=== PATIENT | male | born 1990 | race Caucasian/White ===

== ENCOUNTER 2019-05-24 15:46 | Inpatient (IN) | payer SELFPAY ==
[~2019-05-24] VITALS: Ht 170.2 cm; Wt 127.0 kg
[2019-05-24 16:24] LABS: BASOPHILS # (AUTO) 0.1 (0.0-0.1); BASOPHILS % 0.9 % (0.0-1.0); EOSINOPHILS # (AUTO) 0.2 (0.0-0.4); EOSINOPHILS % 2.2 % (0.0-6.0); HEMATOCRIT 37.2 % (38.2-49.6); HEMOGLOBIN 11.1 g/dL (14.0-18.0); LYMPHOCYTES # (AUTO) 1.3 (1.0-3.2); LYMPHOCYTES % 14.3 % (18.0-39.1); MEAN CORPUSCULAR HEMOGLOBIN 21.8 pg (28-32); MEAN CORPUSCULAR HGB CONC 29.8 g/dL (31-35); MEAN CORPUSCULAR VOLUME 73.1 fL (81-99); MONOCYTES # (AUTO) 0.5 (0.2-0.8); MONOCYTES % 5.4 % (4.4-11.3); NEUTROPHILS % 76.9 % (38.7-80.0); PLATELET COUNT 364 x10e3/uL (140-360); RED BLOOD COUNT 5.09 x10e6/uL (4.3-5.7); RED CELL DISTRIBUTION WIDTH 17.3 % (11.7-14.4)
[2019-05-24 16:34] LABS: INR 1.05; PARTIAL THROMBOPLASTIN TIME 29.3 seconds (23.8-35.5); PROTHROMBIN TIME 14.2 seconds (11.9-14.5)
[2019-05-24 16:44] LABS: ALANINE AMINOTRANSFERASE 22 IU/L (0-55); ALBUMIN 3.3 g/dL (3.5-5.0); ALBUMIN/GLOBULIN RATIO 1.4 (0.8-2.0); ALKALINE PHOSPHATASE 87 IU/L (40-150); ANION GAP 12.7 mmol/L (8-16); BLOOD UREA NITROGEN 14 mg/dL (7-26); BUN/CREATININE RATIO 17 (6-25); CALCIUM 8.9 mg/dL (8.4-10.2); CARBON DIOXIDE 21 mmol/L (22-29); CHLORIDE 103 mmol/L (98-107); CREATININE, SERUM 0.83 mg/dL (0.72-1.25); EST GLOMERULAR FILTRATION RATE > 60 ML/MIN (60-); GLUCOSE 124 mg/dL (74-118); POTASSIUM 3.7 mmol/L (3.5-5.1); SODIUM 133 mmol/L (136-145)
[2019-05-24] MEDS ORDERED: SODIUM CHLORIDE 0.9% 1000ML 2,000 ML ONE (16:48)
--- NOTE | 2019-05-24 16:58 | Diagnostic Imaging Report ---
Exam: Chest one view Clinical history: Shortness of breath Findings: There is severe cardiomegaly. There is no evidence of pulmonary consolidation, edema, pleural effusion, or pneumothorax. The regional osseous structures are unremarkable. Impression: 1. Cardiomegaly. Signed by: Dr. Alejandro Melgar MD on 05/24/2019 4:54 PM
[2019-05-24] MEDS ORDERED: SODIUM CHLORIDE 0.9% 1000ML 1,000 ML IV ONE (17:00)
[2019-05-24 17:01] LABS: BILIRUBIN,URINE NEGATIVE (NEGATIVE); CLARITY,URINE SL CLOUDY (CLEAR); COLOR,URINE YELLOW (YELLOW); KETONES,URINE NEGATIVE (NEGATIVE); LEUKOCYTE ESTERASE ,URINE NEGATIVE (NEGATIVE); NITRITE,URINE NEGATIVE (NEGATIVE); URINE UROBILINOGEN 1 mg/dL (0.2 - 1)
[2019-05-24 17:07] LABS: PROTEIN,URINE DIPSTICK 3+ (NEGATIVE)
[2019-05-24 17:13] LABS: WBC,URINE (MAN) 0-5 /HPF (0-5)
[2019-05-24 17:14] LABS: BACTERIA,URINE RARE /HPF; EPITHELIAL CELLS,URINE FEW /LPF
[2019-05-24] MEDS ORDERED: ENOXAPARIN INJ 80 MG/0.8 ML SYR SC STA (17:26)
[2019-05-24] MEDS: VANCOMYCIN 1GM/NS 250 ML 250 ML IV SCH (17:40)
[2019-05-24] MEDS ORDERED: SODIUM CHLORIDE 0.9% 50ML 50 ML ONE (18:52)
[2019-05-24] MEDS ORDERED: IOPAMIDOL 370 MG/ML 200 ML INFUS..BTL INJ ONE (18:52)
--- NOTE | 2019-05-24 19:05 | Diagnostic Imaging Report ---
EXAM: CT Chest WITH contrast (PE Protocol) INDICATION: ^sob ,PE ^[id number] ^[id number] COMPARISON: Same day chest x-ray TECHNIQUE: Chest was scanned utilizing a multidetector helical scanner from the lung apex through the level of the diaphragm after administration of IV contrast. Thin section reconstructions were obtained with special concentration on the pulmonary arteries. Coronal and sagittal reformations were obtained. Dose modulation, iterative reconstruction, and/or weight based adjustment of the mA/kV was utilized to reduce the radiation dose to as low as reasonably achievable. Pulmonary embolism protocol was performed. IV CONTRAST: 100 mL of Isovue-370 COMPLICATIONS: None RADIATION DOSE: Total DLP: 655.03 mGy*cm Estimated effective dose: (DLP x 0.014 x size factor) mSv CTDIvol has been reviewed. It is below the limits set by the Radiation Protocol Committee (RPC). FINDINGS: LINES/ TUBES: None. LUNGS AND AIRWAYS: No filling defect is identified within the pulmonary arteries to the segmental level. Pulmonary vascular congestion and mild interstitial edema. There is also mild dependent atelectasis. 4 mm right upper lobe nodule (series 3, image 60). 5 mm left lower lobe nodule versus subsegmental atelectasis (3/83). Airways are normal. PLEURA: The pleural spaces are clear. HEART AND MEDIASTINUM: The thyroid gland is normal. No mediastinal, hilar or axillary lymphadenopathy. Nonspecific prominent bilateral hilar lymph nodes, measuring up to 1 cm. The heart is enlarged. There is no pericardial effusion. . Main pulmonary artery measures 3.4 cm, suggestive of pulmonary hypertension. The ascending aorta measures 3.1 cm. UPPER ABDOMEN: Unremarkable BONES: The visualized bony thorax is within normal limits. SOFT TISSUES: Unremarkable. IMPRESSION: No pulmonary emboli. Cardiomegaly, pulmonary vascular congestion, and mild interstitial edema. Lung nodules as above. Without risk factors, no follow-up is necessary. With risk factors, follow-up with low-dose chest CT in one year is recommended. Signed by: Dr. Manjeet Almendarez MD on 05/24/2019 7:02 PM
[2019-05-24] MEDS ORDERED: MORPHINE SULFATE 2 MG/ML SYR 1ML IV STA (19:14)
[2019-05-24] MEDS ORDERED: ONDANSETRON HCL INJ 2MG/ML 2ML 2 MG/ML VIAL IV STA (19:14)
[2019-05-24] MEDS ORDERED: ONDANSETRON HCL INJ 2MG/ML 2ML 2 MG/ML VIAL IV PRN (19:15)
[2019-05-24] MEDS ORDERED: MORPHINE SULFATE INJ 4 MG/ML INJ 1ML IV PRN (19:15)
--- OUTSIDE RECORDS SUMMARY | 2019-05-24 19:43 | XMS REPORT ---
Author Author [facility] Address Unknown Phone Unavailable Care Team Providers Care Clin Tech Name Role Phone Jaron WOOTEN Unavailable Unavailable Problems This patient has no known problems. Allergies, Adverse Reactions, Alerts This patient has no known allergies or adverse reactions. Medications This patient has no known medications. Results Test Description Test Time Test Comments Text Results Atomic Results Result Comments CT CHEST W 2019-05-24 18:43:00 [facility] [address] [address] Patient Name: CAROLINE YU MR #: [id number] : 1990 Age/Sex: 28/M Req #: [id number] Adm Physician: Ordered by: SANTY WOOTEN MD Report #: [id number] Location: ER Room/Bed: Procedure: [id number] CT/CT CHEST W Exam Date: 05/24/19 Exam Time: 1814 REPORT STATUS: Signed EXAM: CT Chest WITH contrast (PE Protocol) INDICATION: sob ,PE [id number] COMPARISON: Same day chest x-ray TECHNIQUE: Chest was scanned utilizing a multidetector helical scanner from the lung apex through the level of the diaphragm after administration of IV contrast. Thin section reconstructions were obtained with special concentration on the pulmonary arteries. Coronal and sagittal reformations were obtained. Dose modulation, iterative reconstruction, and/or weight based adjustment of the mA/kV was utilized to reduce the radiation dose to as low as reasonably achievable. Pulmonary embolism protocol was performed. IV CONTRAST: 100 mL of Isovue-370 COMPLICATIONS: None RADIATION DOSE: Total DLP: 655.03 mGy*cm Estimated effective dose: (DLP x 0.014 x size factor) mSv CTDIvol has been reviewed. It is below the limits set by the Radiation Protocol Committee (RPC). FINDINGS: LINES/ TUBES: None. LUNGS AND AIRWAYS: No filling defect is identified within the pulmonary arteries to the segmental level. Pulmonary vascular congestion and mild interstitial edema. There is also mild dependent atelectasis. 4 mm right upper lobe nodule (series 3, image 60). 5 mm left lower lobe nodule versus subsegmental atelectasis (3/83). Airways are normal. PLEURA: The pleural spaces are clear. HEART AND MEDIASTINUM: The thyroid gland is normal. No mediastinal, hilar or axillary lymphadenopathy. Nonspecific prominent bilateral hilar lymph nodes, measuring up to 1 cm. The heart is enlarged. There is no pericardial effusion. . Main pulmonary artery measures 3.4 cm, suggestive of pulmonary hypertension. The ascending aorta measures 3.1 cm. UPPER ABDOMEN: Unremarkable BONES: The visualized bony thorax is within normal limits. SOFT TISSUES: Unremarkable. IMPRESSION: No pulmonary emboli. Cardiomegaly, pulmonary vascular congestion, and mild interstitial edema. Lung nodules as above. Without risk factors, no follow-up is necessary. With risk factors, follow-up with low-dose chest CT in one year is recommended. Signed by: Dr. Manjeet Del Angel MD on 05/24/2019 7:02 PM Dictated By: MANJEET DEL ANGEL MD 01 Transcribed By: HOLLI on 05/24/191901 COPY TO: SANTY WOOTEN MD CHEST SINGLE (PORTABLE) 2019-05-24 16:53:[address] [address] Patient Name: CAROLINE YU MR #: [id number] : 1990 Age/Sex: 28/M Req #: [id number] Adm Physician: Ordered by: SANTY WOOTEN MD Report #: [id number] Location: Room/Bed: Procedure: [id number] DX/CHEST SINGLE (PORTABLE) Exam Date: 05/24/19 Exam Time: 1606 REPORT STATUS: Signed Exam: Chest one view Clinical history: Shortness of breath Findings: There is severe cardiomegaly. There is no evidence of pulmonary consolidation, edema, pleural effusion, or pneumothorax. The regional osseous structures are unremarkable. Impression: 1. Cardiomegaly. Signed by: Dr. Alejandro Melgar MD on 05/24/2019 4:54 PM Dictated By: WILFREDO MELGAR MD [id number] Transcribed By: HOLLI on 05/24/19 1310 COPY TO: SANTY WOOTEN MD
[2019-05-24 20:04] VITALS: BP 150/107
[2019-05-24] MEDS: FUROSEMIDE INJ 10 MG/ML 4 ML VIAL IV SCH (21:53)
[2019-05-24] MEDS ORDERED: ALBUTEROL SULF 0.083% NEB SOLN 3 ML NEB INH PRN (22:00)
[2019-05-24] MEDS ORDERED: LISINOPRIL10 MG PO (22:00)
[2019-05-24] MEDS ORDERED: ALBUTEROL0.63 MG/3 INH (22:00)
[2019-05-24] MEDS: METOPROLOL TARTRATE 25 MG TAB PO SCH (22:20)
[2019-05-25] VITALS (7 sets, daily range): BP systolic 115–140; BP diastolic 74–98
[2019-05-25 06:09] LABS: BASOPHILS # (AUTO) 0.1 (0.0-0.1); BASOPHILS % 0.9 % (0.0-1.0); EOSINOPHILS # (AUTO) 0.2 (0.0-0.4); EOSINOPHILS % 1.7 % (0.0-6.0); HEMATOCRIT 36.2 % (38.2-49.6); LYMPHOCYTES # (AUTO) 1.9 (1.0-3.2); LYMPHOCYTES % 20.2 % (18.0-39.1); MEAN CORPUSCULAR HGB CONC 30.4 g/dL (31-35); MEAN CORPUSCULAR VOLUME 72.3 fL (81-99); MONOCYTES # (AUTO) 0.6 (0.2-0.8); MONOCYTES % 6.6 % (4.4-11.3); NEUTROPHILS # (AUTO) 6.6 (2.1-6.9); NEUTROPHILS % 70.4 % (38.7-80.0); PLATELET COUNT 363 x10e3/uL (140-360); RED BLOOD COUNT 5.01 x10e6/uL (4.3-5.7); RED CELL DISTRIBUTION WIDTH 17.5 % (11.7-14.4)
[2019-05-25 06:26] LABS: ALANINE AMINOTRANSFERASE 21 IU/L (0-55); ALBUMIN 3.3 g/dL (3.5-5.0); ALBUMIN/GLOBULIN RATIO 1.4 (0.8-2.0); ALKALINE PHOSPHATASE 74 IU/L (40-150); ANION GAP 14.7 mmol/L (8-16); BLOOD UREA NITROGEN 12 mg/dL (7-26); BUN/CREATININE RATIO 15 (6-25); CALCIUM 8.8 mg/dL (8.4-10.2); CARBON DIOXIDE 23 mmol/L (22-29); CHLORIDE 102 mmol/L (98-107); CREATININE, SERUM 0.79 mg/dL (0.72-1.25); EST GLOMERULAR FILTRATION RATE > 60 ML/MIN (60-); GLUCOSE 108 mg/dL (74-118); POTASSIUM 3.7 mmol/L (3.5-5.1); SODIUM 136 mmol/L (136-145)
--- NOTE | 2019-05-25 07:00 | NUR ---
received am report from ZEKE Mcdonald and morning rounds done. pt is alert resting in bed, no s/s of distress. call light within reach and instructed to call nurse for help
--- NOTE | 2019-05-25 07:29 | Diagnostic Imaging Report ---
EXAMINATION: CHEST SINGLE (PORTABLE) INDICATION: Short of breath COMPARISON: Chest CT 05/24/2019 FINDINGS: AP view TUBES and LINES: None. LUNGS: Lungs are well inflated. No consolidations. Increased pulmonary distortion markings. Pulmonary vessel congestion. PLEURA: No pleural effusion or pneumothorax. HEART AND MEDIASTINUM: Moderate cardiomegaly. BONES AND SOFT TISSUES: No acute osseous lesion. Soft tissues are unremarkable. UPPER ABDOMEN: No free air under the diaphragm. IMPRESSION: Cardiomegaly and mild pulmonary interstitial edema. Signed by: Sadiq Robb DO on 05/25/2019 7:26 AM
[2019-05-25] MEDS ORDERED: FUROSEMIDE INJ 10 MG/ML 4 ML VIAL IV SCH (09:00)
[2019-05-25] MEDS: FUROSEMIDE INJ 10 MG/ML 4 ML VIAL IV SCH ×2 (09:45→18:27)
[2019-05-25] MEDS: METOPROLOL TARTRATE 25 MG TAB PO SCH (09:45)
[2019-05-25] MEDS: LISINOPRIL 10 MG TAB PO SCH ×2 (09:45→18:09)
--- NOTE | 2019-05-25 11:24 | Consultation ---
DATE OF CONSULTATION: 05/25/2019 REASON FOR CONSULTATION: Cellulitis of the right foot. He relates happened 3 to 4 days ago. HISTORY OF PRESENT ILLNESS: The patient is a pleasant 28-year-old morbidly obese male with a history of hypertension and asthma, who relates he had cellulitis and redness and swelling for the last four days. He is denying history of fever, chills, nausea, or vomiting. Does relate he has gotten somewhat better since he has been on his IV vancomycin. PAST MEDICAL HISTORY: As described above hypertension and asthma. PAST SURGICAL HISTORY: Remarkable for tonsillectomy. SOCIAL HISTORY: Denies any smoking, drinking, or recreational drug use. Lives with his parents. Has no kids. 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 FAMILY HISTORY: Remarkable for diabetes. ALLERGIES: THE PATIENT DENIES. CURRENT MEDICATIONS: Note listed in chart including IV vancomycin. REVIEW OF SYSTEMS: CARDIAC: Denies any palpitations or arrhythmias. RESPIRATORY: Denies any shortness of breath or productive cough. GASTROINTESTINAL: Denies any diarrhea or constipation. GENITOURINARY: Denies hematuria or problems voiding. PHYSICAL EXAMINATION: Podiatric physical examination reveals the following; VASCULATURE: Pedal pulses of both the DP and PT are palpable. NEUROLOGICAL: Seems to be within normal limits. MUSCULOSKELETAL: Muscle mass to be somewhat asymmetrical. Some swelling noted right foot when compared to the left with muscle strength 5/5 bilateral muscle groups. The patient able to walk without distress. DERMATOLOGICAL: There was a cellulitic crust at the dorsal aspect of the right foot measuring 2 to 3 cm in diameter with cellulitis up to the leg area, but has diminished significantly from the pen markings since yesterday. ASSESSMENT: Cellulitis with cellulitic patch, dorsal aspect, right foot. PLAN: We will continue IV antibiotics. Start applying Bactroban ointment to the dorsal aspect of the right foot b.i.d. keeping foot exposed to air. Upon discharge, the patient was instructed to follow up in the office. KYLE Fang/SHAY /[id number]
[2019-05-25] MEDS: MUPIROCIN 2% OINT 22 GM TUBE TOP SCH ×2 (11:41→18:27)
--- NOTE | 2019-05-25 14:36 | NUR ---
Nutrition Screen Note RD Recommendation for Physician: -Continue diet as ordered Plan of Care: RD following, monitoring for tolerance and adequacy, diet education Nutrition reason for involvement: Diagnosis Primary Diagnose(s): cellulitis, CHF PMH: HTN, asthma Ht: 67in Wt: 280lb BMI: 43.9kg/m2 IBW: 148lb +/- 10% RD Assessment: (05/25) Chart reviewed. Labs and meds reviewed. 28yo M, who was admitted for RLE cellulitis. BNP was elevated at 968. Pt denied any hx of heart failure. Currently on Lasix. Pt reported eating like usual. No GI complains noted. Pt denied any chewing or swallowing difficulty. Pt was interested in heart healthy diet information. All questions have been answered. Current Diet: heart healthy diet Malnutrition Evaluation (05/25/2019) The patient does not meet criteria for a specified degree of malnutrition at this time. Will re-evaluate at follow-up as appropriate. Diet Education Needs Assessment: Diet education indicated, pt was agreeable. Learner(s): pt Time spent: 25minutes Barriers: No barriers identified. Cultural/Language Modifications: No cultural/language modifications noted. Pt speaks Bolivian. Readiness: Pt eager to learn. Method: Handouts, explanation Topics: Heart healthy nutrition therapy (salt intake, fat intake, weight management) Understanding/Compliance: Expect good understanding/compliance from pt. Will benefit from reinforcement. All questions have been answered. Nutrition Care Level: low Signed: Mely Alejandra, , RD, LD
--- NOTE | 2019-05-25 16:38 | NUR ---
WOUND CARE NURSE INITIAL CONSULTATION. 28 YEAR OLD MALE ADMITTED TO [facility] WITH DX OF CELLULITIS AND CHF. HEAD TO TOE SKIN ASSESSMENT PERFORMED TODAY. PT PRESENTS WITH CELLULITIS TO RIGHT LOWER LEG WELL WITH A 5X4.5X0.2CM CELLULITIC CRUST TO RIGHT DORSAL FOOT. THERE ARE NO OTHER AREAS OF CONCERN NOTED AT THIS TIME. DR. 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 PT TO FOLLOW UP WITH DR. OLSEN UPON DISCHARGE. LABS: WBC: 9.36 ALB: 3.3 BNP: 969.8 BLOOD AND URINE CX RESULTS ARE PENDING. RECOMMENDATIONS: CONTINUE WITH CURRENT WOUND CARE ORDERS. RECONSULT WOUND CARE PRN. THANKS FOR THIS CONSULTATION. Addendum: 05/25/19 at 1650 by Nita Richards RN Amended: Links added. Addendum: 05/25/19 at 1650 by Nita Richards RN VENOUS DOPLER RESULTS ARE PENDING.
[2019-05-25] MEDS ORDERED: POTASSIUM CHLORIDE 20 MEQ TAB CR PO STA (16:51)
[2019-05-25] MEDS ORDERED: METOLAZONE 5 MG TAB PO ONE (17:00)
[2019-05-25] MEDS: CARVEDILOL 12.5 MG TAB PO SCH (18:08)
[2019-05-25] MEDS ORDERED: SODIUM CHLORIDE 0.9% 250ML 250 ML ONE (18:17)
[2019-05-25] MEDS: VANCOMYCIN 1GM/NS 250 ML 250 ML IV SCH (18:19)
--- NOTE | 2019-05-25 19:02 | History and Physical ---
HISTORY OF PRESENT ILLNESS: The patient is a 28-year-old male with past medical history positive for hypertension, came here because of cellulitis on the right leg, open wound on right foot and shortness of breath. He was found to have congestive heart failure and chest x-ray. He was started on IV antibiotics and IV Lasix. REVIEW OF SYSTEMS: CARDIOVASCULAR: No chest pain or palpitation. RESPIRATORY: He does have shortness of breath on exertion. No cough. GASTROINTESTINAL: No nausea, vomiting, or diarrhea. GENITOURINARY: No frequency or dysuria. ALLERGIES: HE IS NOT ALLERGIC TO ANY MEDICATION. SOCIAL HISTORY: He does not smoke. He drinks occasionally. No recreational drug use. PAST MEDICAL HISTORY: Hypertension. PHYSICAL EXAMINATION: HEART: Showed regular rhythm. Normal S1 and S2 sounds. LUNGS: Clear bilaterally. ABDOMEN: Soft. EXTREMITIES: Show redness on the lower 3rd of the right lower extremity and an open wound on the dorsal aspect of the right foot. VITAL SIGNS: Blood pressure 131/98, temperature 96.6, heart rate 100 per minute, respiratory rate 22 per minute, oxygen saturation 100%. LABORATORY DATA: On the BMP; sodium 135, potassium 3.7, chloride 102, CO2 23, BUN 12, creatinine 0.79, glucose 108. On CBC; white blood count 9.36, hemoglobin 11.0, hematocrit 36.2, platelet count 363,000. PT 14.2, INR 1.05, PTT 49.3. AST 20, ALT 21, total bilirubin 1.2, alkaline phosphatase 74. Chest x-ray showed CHF and also cardiomegaly. IMPRESSION: 1. Right leg cellulitis with right foot wound. 2. Acute systolic congestive heart failure. 3. Hypertension. 4. Morbid obesity. PLAN OF TREATMENT: Continue albuterol 1 inhalation daily, vancomycin 1 g IV once a day, morphine 4 mg IV q.4 hours as needed, Zofran 4 mg IV q.4 hours, furosemide 60 mg IV daily, metoprolol 25 mg twice a day, lisinopril 20 mg twice a day, potassium 40 mEq daily. We are going to do a BMP tomorrow. We are going to order an echocardiogram. We are going to consult Dr. Cardenas for Cardiology to investigate more about the congestive heart failure. Marlo James, MD LAS/SHAY /[id number]
--- NOTE | 2019-05-25 20:53 | Consultation ---
DATE OF CONSULTATION: 05/25/2019 Cardiology Consultation REASON FOR CONSULTATION: CHF, new diagnosis. HISTORY OF PRESENT ILLNESS: Mr. Hightower is a 28-year-old gentleman with history of hypertension for many years and morbid obesity, who presents to this institution with worsening swelling in the bilateral lower extremity as well as a blister that developed over the right dorsum of the foot, now it is purulent, erythematous, painful, infected going up the right leg compatible with diagnosis of cellulitis. In terms of his symptoms, the patient reports that he has been feeling bad since November of 2018. He went to [place] and came back and it has not been the same. He has had new onset exertional dyspnea with progressively worsening activity tolerance. He reports walking from less than a quarter block. He becomes severely winded and has to stop to catch his breath. He has reported increased abdominal girth and lower extremity swelling. He reports back in December of 2018, was hospitalized in [place] with "fluid in my lungs." At that time, he has not been diagnosed with anything formally. He is maintained chronically on lisinopril for his blood pressure control, however, about two weeks ago he developed "heat blister" over the dorsum of the right foot and had burst. Subsequently, he has had erythema, purulence, and pain over the dorsum of the foot, growing up the leg. He visited his primary care doctor, who reported that there was an infection, need to go to the emergency room for further care and management. While here, he has been evaluated with a lower extremity venous duplex, it was unremarkable. His EF on echocardiogram is less than 20% as noted by another levi maker. He endorses four pillow orthopnea symptoms, is unable to lie flat. He also endorses early satiety for the last two months and getting full rather easily. A long discussion today in terms of the diagnosis of CHF. PAST MEDICAL HISTORY: 1. Hypertension, essential, diagnosed 5 years ago. 2. Asthma, mild, intermittent. PAST SURGICAL HISTORY: History of tonsillectomy in the past as a child. FAMILY HISTORY: Mother alive at age of 53, has hypertension and hypercholesteremia. Father alive at the age of 56 with hypertension and hypercholesteremia. SOCIAL HISTORY: He dips tobacco. Denies any alcohol or illicit drug use. ALLERGIES: NO KNOWN DRUG ALLERGIES. HOME MEDICATIONS: Lisinopril 20 mg daily. REVIEW OF SYSTEMS: GENERAL: Denies any fevers or chills. Positive for malaise. HEENT: No headaches, visual complaints, sore throat, or stuffy nose. RESPIRATORY: Denies any pleuritic chest pain. Has severe exertional dyspnea with minimal activity. CARDIOVASCULAR: As per HPI. Denies any palpitations, syncope, or near syncope. GI: Denies any abdominal pain. Does have early satiety. No bright red blood per rectum, melena, hematemesis, nausea, or vomiting. : Denies any dysuria, pyuria, or change in urinary frequency. MUSCULOSKELETAL: Positive for lower extremity swelling to the knees bilaterally. HEME: No easy bruising or bleeding. ID: No known infectious issues. NEUROLOGIC: Denies any focal weakness, numbness, tingling, seizures, headache, history of TIA or stroke. SKIN: Positive for rash and cellulitis as noted above. PHYSICAL EXAMINATION: VITAL SIGNS: Height of 67 inches, weight of 280 pounds, BMI is 43.9. Temperature of 96.2, pulse of 99, respiratory rate of 20, blood pressure of 115/74, and O2 saturation 97% on room air. GENERAL: This is a morbidly obese gentleman, who is well nourished, well developed. He is currently in no apparent distress. HEENT: Normocephalic, atraumatic. Pupils are equal, round, and reactive to light. Extraocular movements are intact. Oropharynx is clear. NECK: There is elevation of jugular venous pulsation amenable with a prominent C-V waves. CARDIOVASCULAR: Regular rate and rhythm. Normal S1, S2. Positive S3 gallop. No murmurs. LUNGS: Show wheezes bilaterally with some crackles at the right base. ABDOMEN: Soft, nontender, obese. Normoactive bowel sounds. No hepatosplenomegaly. BACK: No costovertebral angle tenderness. EXTREMITIES: Warm with 2+ bilateral radial pulses, 1+ pedal pulses. There is edema to the mid knees bilaterally, and then there is an ulcer over the dorsum of his right foot with erythema in the right calf region. NEUROLOGIC: Cranial nerves II through XII are intact. Strength is grossly nonfocal. PSYCH: Normal fluent speech. Appropriate affect. No anxiety or delusions. LABORATORY DATA: White count of 9.4, hemoglobin of 11.0, hematocrit 36.2, platelets of 363, MCV is 72. Sodium 136, potassium 3.7, chloride 102, bicarb 23, BUN 12, creatinine 0.79, glucose of 108, and calcium of 8.8. AST 20, ALT 21, alkaline phosphatase 74, total protein 7.4, and albumin of 3.3. BNP is 969. INR is 1.05. UA is unremarkable. RADIOGRAPHIC DATA: Chest x-ray reveals cardiomegaly and interstitial edema. Chest CT shows no pulmonary emboli; cardiomegaly, pulmonary venous congestion as well as a 4 mm right upper lobe nodule and a 5 mm left lower lobe nodule versus atelectasis, needs repeated low-dose CT chest in one year. DIAGNOSES: 1. Right lower extremity cellulitis. 2. Acute decompensated systolic and diastolic heart failure, EF less than 20%. 3. Gross volume overload on exam. 4. Hypertension, essential. 5. Morbid obesity. 6. Presence of lung nodules on CT chest needs interval surveillance in one year. PLAN/RECOMMENDATIONS: 1. From a cardiovascular standpoint, we will go ahead and initiate him on heart failure regimen. He is already on JAZMIN inhibitor, and we will add Coreg therapy. 2. We will initiate aggressive diuretic therapy with Lasix and give him a dose of metolazone to get things started. 3. IV antibiotics per ID service/primary team. 4. Risk factor modification medical therapy. 5. We will continue to follow this patient with you. MD KONSTANTIN Garrett/SHAY /[id number]
[2019-05-26] VITALS (8 sets, daily range): BP systolic 97–120; BP diastolic 55–78
[2019-05-26 06:07] LABS: BASOPHILS # (AUTO) 0.1 (0.0-0.1); BASOPHILS % 1.1 % (0.0-1.0); EOSINOPHILS # (AUTO) 0.3 (0.0-0.4); EOSINOPHILS % 3.8 % (0.0-6.0); HEMATOCRIT 38.1 % (38.2-49.6); HEMOGLOBIN 11.4 g/dL (14.0-18.0); LYMPHOCYTES # (AUTO) 1.8 (1.0-3.2); LYMPHOCYTES % 21.5 % (18.0-39.1); MEAN CORPUSCULAR HEMOGLOBIN 21.7 pg (28-32); MEAN CORPUSCULAR HGB CONC 29.9 g/dL (31-35); MEAN CORPUSCULAR VOLUME 72.4 fL (81-99); MONOCYTES # (AUTO) 0.6 (0.2-0.8); NEUTROPHILS # (AUTO) 5.6 (2.1-6.9); NEUTROPHILS % 66.2 % (38.7-80.0); PLATELET COUNT 350 x10e3/uL (140-360); RED BLOOD COUNT 5.26 x10e6/uL (4.3-5.7); RED CELL DISTRIBUTION WIDTH 17.3 % (11.7-14.4)
[2019-05-26 06:29] LABS: ALANINE AMINOTRANSFERASE 20 IU/L (0-55); ALBUMIN 3.3 g/dL (3.5-5.0); ALBUMIN/GLOBULIN RATIO 1.4 (0.8-2.0); ANION GAP 16.7 mmol/L (8-16); BLOOD UREA NITROGEN 16 mg/dL (7-26); BUN/CREATININE RATIO 16 (6-25); CALCIUM 9.3 mg/dL (8.4-10.2); CARBON DIOXIDE 27 mmol/L (22-29); CHLORIDE 100 mmol/L (98-107); CHOL/HDL RATIO 3.2 (3.9-4.7); CHOLESTEROL 104 MD/DL (0-199); CREATININE, SERUM 0.99 mg/dL (0.72-1.25); EST GLOMERULAR FILTRATION RATE > 60 ML/MIN (60-); GLUCOSE 91 mg/dL (74-118); HDL CHOLESTEROL 33 MG/DL (40-60); LDL CHOLESTEROL 56 MG/DL (60-130); POTASSIUM 3.7 mmol/L (3.5-5.1); SODIUM 140 mmol/L (136-145); TRIGLYCERIDES 77 MG/DL (0-149)
[2019-05-26 06:41] LABS: THYROID STIMULATING HORMONE 1.411 uIU/mL (0.350-4.940)
[2019-05-26 06:44] LABS: ALKALINE PHOSPHATASE 76 IU/L (40-150)
--- NOTE | 2019-05-26 07:00 | NUR ---
BEDSIDE SHIFT REPORT RECEIVED FROM THE CONTOUR BAND SAW OPERATOR VERTICAL RN. PT DENIES NEEDS AT THIS TIME.
--- NOTE | 2019-05-26 07:09 | NUR ---
REPORT GIVEN TO ONCOMING NURSE.WALKING ROUNDS MADE.PT RESTING IN BED WITH NO S/S OF DISTRESS.
[2019-05-26] MEDS: LISINOPRIL 10 MG TAB PO SCH ×2 (09:00→17:00)
[2019-05-26] MEDS: POTASSIUM CHLORIDE 20 MEQ TAB CR PO SCH (09:12)
[2019-05-26] MEDS: CARVEDILOL 12.5 MG TAB PO SCH ×2 (09:14→17:17)
[2019-05-26] MEDS: FUROSEMIDE INJ 10 MG/ML 4 ML VIAL IV SCH ×2 (09:29→17:17)
[2019-05-26] MEDS: MUPIROCIN 2% OINT 22 GM TUBE TOP SCH ×2 (09:29→17:17)
--- NOTE | 2019-05-26 13:00 | NUR ---
DR. MARTEL AT BEDSIDE. RESPIRATORY RECOMMENDS CPAP FOR THE PT. INFORMED THE SAME TO THE DR. PT WILL BRING CPAP FROM HOME TODAY PER THE DR. ELVIS RESPIRATORY.
--- NOTE | 2019-05-26 13:10 | NUR ---
PT BLOOD PRESSURE 97/64. INFORMED DR. MARTEL. HOLD LISINOPRIL PER DR. MARTEL
--- NOTE | 2019-05-26 17:57 | Consultation ---
DATE OF CONSULTATION: Infectious Disease Consultation REASON FOR CONSULTATION: This is a 29-year-old gentleman. This is patient of Dr. Ramirez, currently located at [facility] in [place], [place] in room 289. Infectious Disease consulted for cellulitis of the right lower extremity. HISTORY OF PRESENT ILLNESS: Mr. Hightower is a pleasant 29-year-old gentleman, who has been diagnosed with hypertension for the past 5 years and he has not been feeling well for past few months, actually since the November of 2018 when he came back from [place]. 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 He came in with complaint of swelling of the lower extremities, worse on the right and he also has some wound on top of his foot. He has been battling some shortness of breath recently with progressive worsening. I have reviewed the notes. It is noteworthy to mention that had a recent echocardiogram by other cardiologists here, which showed ejection fraction of less than 20%. Anyway, this patient is here with cellulitis of right lower extremities and Infectious Disease consulted for further management of the antibiotics. PAST MEDICAL HISTORY: Includes hypertension, asthma. PAST SURGICAL HISTORY: He had a history of tonsillectomy when he was a child. FAMILY HISTORY: Positive for hypertension and hyperlipidemia from both parents. SOCIAL HISTORY: He dips tobacco, occasional alcohol. Denied illicit drugs. ALLERGIES: NO KNOWN ALLERGIES. LABORATORY STUDIES: White blood cells of 8.47, hemoglobin 11.4, platelet 350. Sodium 140, potassium 3.7, creatinine 0.99. MICROBIOLOGY: Blood culture negative on May 24. Urine culture negative on May 24. RADIOLOGY STUDIES: Chest x-ray showed cardiomegaly. CT of the chest showed no pulmonary embolism, however, has cardiomegaly with pulmonary vascular congestion with mild interstitial edema. Lung nodules were noted. Chest x-ray repeat showed cardiomegaly and mild pulmonary interstitial edema. REVIEW OF SYSTEMS: Shortness of breath, weakness, debility, and edema. However, denied nausea, vomiting, fever, chills, or chest pain. PHYSICAL EXAMINATION: GENERAL: Seems to be alert and oriented, very pleasant, in supine position in bed. VITAL SIGNS: Temperature 95.5, however, patient does not look septic at all. Pulse of 88, respiration 19, blood pressure 120/55. CV: S1, S2. CHEST: Equal expansion. Decreased breath sounds. No acute distress. ABDOMEN: Soft, obese, and nontender. Positive bowel sounds. HEENT: Moist. No pallor. No JVD. EXTREMITIES: Edemas over lower extremities, worse on the right. There is an abrasion on the top of his right foot, however, it seems to be dry. As I had reviewed the notes, apparently it had purulent discharge at some point in the past, however, at this time, it is dry. ASSESSMENT AND PLAN: 1. Cellulitis of the lower extremity, right, mostly mixed venous stasis. 2. Congestive heart failure with ejection fraction of less than 20%. 3. Hypertension. 4. I have also reviewed the medication list and as far as Infectious Disease point of view, the patient is on vancomycin. 5. The patient is seen and evaluated, discussed with Dr. Black in detail. Please refer to the chart for further management of antibiotics on this pleasant patient. I want to thank you for this kind consult. Dictated by Remberto Haywood PA-C (Al) Angeline Black MD /MODL /[id number]
[2019-05-26] MEDS: VANCOMYCIN 1GM/NS 250 ML 250 ML IV SCH (18:17)
--- NOTE | 2019-05-26 18:25 | NUR ---
LEFT FORE ARM 20 G IV REMOVED DUE TO LEAKAGE. TIP INTACT. NO BLEEDING NOTED. DRESSING APPLIED. PT DENIED FURTHER NEEDS.
--- NOTE | 2019-05-26 19:00 | NUR ---
BEDSIDE SHIFT REPORT GIVEN TO THE SERVICES ADVISOR RN. PT DENIED FURTHER NEEDS.
[2019-05-27] VITALS (7 sets, daily range): BP systolic 91–124; BP diastolic 58–73
--- NOTE | 2019-05-27 06:46 | NUR ---
BEDSIDE SHIFT REPORT GIVEN TO ONCOMING NURSE.PT RESTING IN BED WITH NO S/S OF DISTRESS.
--- NOTE | 2019-05-27 07:00 | NUR ---
BEDSIDE SHIFT REPORT RECEIVED FROM THE VISUAL SPECIALIST RN. PT DENIES NEEDS AT THIS TIME. PT FAMILY AT BEDSIDE.
[2019-05-27] MEDS: LISINOPRIL 10 MG TAB PO SCH ×2 (08:20→16:44)
[2019-05-27] MEDS: FUROSEMIDE INJ 10 MG/ML 4 ML VIAL IV SCH ×2 (08:26→16:43)
[2019-05-27] MEDS: CARVEDILOL 12.5 MG TAB PO SCH ×2 (08:27→16:44)
[2019-05-27] MEDS: POTASSIUM CHLORIDE 20 MEQ TAB CR PO SCH (08:28)
[2019-05-27] MEDS: MUPIROCIN 2% OINT 22 GM TUBE TOP SCH ×2 (08:29→16:44)
--- NOTE | 2019-05-27 15:10 | NUR ---
Visit made by the Spiritual Care Department Pastoral Visitor, Jose Luis Guajardo. PV provided pastoral presence, prayer, communion, hospitality, and supportive listening. Pastoral Visitor informed pt/family of the scope of Head Waitress Services and availability. KLEBER CHACON Deputy Brand Inspector Spiritual Care Department O: [phone] Pager: [phone] ([phone] calling from)
[2019-05-27] MEDS: VANCOMYCIN 1GM/NS 250 ML 250 ML IV SCH (16:44)
--- NOTE | 2019-05-27 18:15 | NUR ---
RIGHT ARM 18G IV REMOVED DUE TO LEAKAGE. TIP INTACT. NO BLEEDING NOTED. DRESSING APPLIED. PT DENIED FURTHER NEEDS.
--- NOTE | 2019-05-27 18:30 | NUR ---
RIGHT FORE ARM IV 20G IV STARTED. PT DENIED FURTHER NEEDS.
--- NOTE | 2019-05-27 19:00 | NUR ---
BEDSIDE SHIFT REPORT GIVEN TO THE FARMWORKER MACHINE RN. FAMILY AT BEDSIDE. PT DENIED FURTHER NEEDS.
--- NOTE | 2019-05-27 20:06 | Progress Note ---
DATE: 05/27/2019 SUBJECTIVE: The patient at bedside, doing better, accompanied by sister. Denies any history of fever, chills, nausea, or vomiting. OBJECTIVE: VITAL SIGNS: Afebrile. Vital signs stable. LABORATORY DATA: Lab show white blood cell count of 8.4. Decreased cellulitis and decreased edema to the right lower extremity. Lesion to the dorsal aspect of right foot continues to improve, significantly better. ASSESSMENT: Grade 1 lesion dorsal aspect right foot with cellulitis, resolving. PLAN: We will continue IV antibiotics. Continue Bactroban ointment b.i.d. Okay to be discharged when okay with Dr. Ramirez. KYLE Fang/SHAY /[id number]
[2019-05-28] VITALS: BP 117/70
[2019-05-28 04:00] VITALS: BP 122/78
[2019-05-28 06:18] LABS: BASOPHILS # (AUTO) 0.1 (0.0-0.1); BASOPHILS % 0.7 % (0.0-1.0); EOSINOPHILS # (AUTO) 0.3 (0.0-0.4); EOSINOPHILS % 3.5 % (0.0-6.0); HEMATOCRIT 42.3 % (38.2-49.6); HEMOGLOBIN 12.7 g/dL (14.0-18.0); LYMPHOCYTES # (AUTO) 1.5 (1.0-3.2); LYMPHOCYTES % 17.1 % (18.0-39.1); MEAN CORPUSCULAR HEMOGLOBIN 21.7 pg (28-32); MEAN CORPUSCULAR VOLUME 72.3 fL (81-99); MONOCYTES # (AUTO) 0.7 (0.2-0.8); MONOCYTES % 8.6 % (4.4-11.3); NEUTROPHILS % 69.9 % (38.7-80.0); PLATELET COUNT 396 x10e3/uL (140-360); RED BLOOD COUNT 5.85 x10e6/uL (4.3-5.7); RED CELL DISTRIBUTION WIDTH 17.4 % (11.7-14.4)
[2019-05-28 06:50] LABS: ALANINE AMINOTRANSFERASE 27 IU/L (0-55); ALBUMIN 3.6 g/dL (3.5-5.0); ALBUMIN/GLOBULIN RATIO 1.3 (0.8-2.0); ALKALINE PHOSPHATASE 88 IU/L (40-150); ANION GAP 15.6 mmol/L (8-16); BLOOD UREA NITROGEN 16 mg/dL (7-26); BUN/CREATININE RATIO 19 (6-25); CALCIUM 9.5 mg/dL (8.4-10.2); CARBON DIOXIDE 28 mmol/L (22-29); CHLORIDE 96 mmol/L (98-107); CREATININE, SERUM 0.86 mg/dL (0.72-1.25); EST GLOMERULAR FILTRATION RATE > 60 ML/MIN (60-); GLUCOSE 103 mg/dL (74-118); POTASSIUM 3.6 mmol/L (3.5-5.1); SODIUM 136 mmol/L (136-145)
--- NOTE | 2019-05-28 07:15 | NUR ---
REPORT GIVEN TO ONCOMING NURSE.WALKING ROUNDS MADE.PT RESTING IN BED WITH NO S/S OF DISTRESS.
[2019-05-28 07:45] VITALS: BP 116/59
[2019-05-28] MEDS ORDERED: LISINOPRIL 10 MG TAB PO SCH (09:00)
[2019-05-28] MEDS ORDERED: FUROSEMIDE 40 MG TAB PO SCH (09:00)
[2019-05-28] MEDS ORDERED: LISINOPRIL 20 MG TAB PO SCH (09:00)
[2019-05-28] MEDS: CARVEDILOL 3.125 MG TAB PO SCH ×2 (10:12→16:50)
[2019-05-28] MEDS: POTASSIUM CHLORIDE 20 MEQ TAB CR PO SCH (10:13)
[2019-05-28] MEDS: MUPIROCIN 2% OINT 22 GM TUBE TOP SCH ×2 (10:16→16:50)
[2019-05-28 10:24] VITALS: BP 116/59
[2019-05-28 11:43] VITALS: BP 129/85
[2019-05-28] MEDS ORDERED: ONDANSETRON HCL 4 MG ORAL DISINTEGRATING TAB PO PRN (14:30)
--- NOTE | 2019-05-28 14:31 | NUR ---
Spoke to pt at bedside regarding follow up appts. States he has Dr. Ware's information and will call the office to set up a follow up appointment. Also states he sees a family practitioner - SNEHA Garza with Dr. Pedro Richards in [place]. CM advised him to also make an appointment to see Dr. Richards following discharge from the hospital.
--- NOTE | 2019-05-28 16:00 | NUR ---
PATIENT HAS TWO DISCHARGE ORDERS, ONE FOR TOMORROW AND A SECOND ONE FOR TODAY FROM DR. VELAZQUEZ, CALL ED HIS OFFICE AND SPOKE TO PRODUCE SPECIALIST, SHE STATED THAT HE HAS BEEN PAGED.
[2019-05-28 16:08] VITALS: BP 121/68
[2019-05-28] MEDS ORDERED: DOXYCYCLINE HY100 M3 PO (17:01)
[2019-05-28] MEDS ORDERED: COREG6.25 MG PO (17:02)
[2019-05-28] MEDS ORDERED: LASIX40 MG PO (17:03)
[2019-05-28] MEDS ORDERED: POTASSIUM CHLO10 ME1 PO (17:03)
--- NOTE | 2019-05-29 05:18 | Discharge Summary ---
HISTORY: The patient is a 29-year-old male, who claims he has no past medical history, came here with cellulitis of the right leg. He was found to have [id number] systolic congestive heart failure. Echocardiogram was done by Dr. Cardenas, Cardiology, who found out that the patient had an ejection fraction of only 30%. So, he was started on Coreg, JAZMIN inhibitor, and Lasix. He was started also on IV antibiotics. Cellulitis practically resolved. The open wound on the top of the right foot is almost gone. The patient is going home tomorrow if okay with the consultants. PHYSICAL EXAMINATION: VITAL SIGNS: Blood pressure 129/85, temperature 97.5, heart rate is 108 per minute, respiratory rate is 20 per minute, oxygen saturation 98%. HEART: Showed regular rhythm. Normal S1 and S2 sound. LUNGS: Clear bilaterally. ABDOMEN: Soft. EXTREMITIES: Show healing on the wound on the dorsal aspect of the right foot. The redness is completely resolved. LABORATORY WORK: We have BMP; sodium 136, potassium 3.6, chloride 96, CO2 of 28, BUN 16, creatinine 0.86, glucose 103. On the CBC; white count 8.62, hemoglobin 12.7, hematocrit 42.3, and platelet count 396,000. PT 14.2, INR 1.05, PTT 29.3. AST 20, ALT 27, total bilirubin 0.9, alkaline phosphatase 88. FINAL IMPRESSION: 1. Right leg and right foot cellulitis. 2. Right foot wound with cellulitis, which is resolved. 3. Zwyzj-jb-qeomcsz systolic congestive heart failure. 4. Hypertension. PLAN OF TREATMENT: The patient is going to be discharged on lisinopril 20 mg daily, carvedilol 6.25 mg twice a day, furosemide 40 mg daily, potassium chloride 40 mEq daily, and the antibiotics will be decided by Dr. Black, Infectious Disease rewards consultant. The patient will follow up with Dr. Cardenas as an outpatient. The patient is aware of diagnosis, aware of the diet and medication he has to take. MD REAGAN Strange/SHAY /[id number]
== END 2019-05-28 17:54 | disposition home or self-care (01) | DRG 292 ==
LOC: ER 15:46 → ERHOLD 19:40 → MED/SURG3 20:08
PROVIDERS: ADMIT Internal Medicine; ATTEND Internal Medicine
DX: I11.0 Hypertensive heart disease with heart failure (principal); L03.115 Cellulitis of right lower limb; Z68.41 Body mass index [BMI] 40.0-44.9, adult; I50.23 Acute on chronic systolic (congestive) heart failure; E66.01 Morbid (severe) obesity due to excess calories; I27.81 Cor pulmonale (chronic); E11.9 Type 2 diabetes mellitus without complications; G47.33 Obstructive sleep apnea (adult) (pediatric); J45.20 Mild intermittent asthma, uncomplicated; R91.8 Other nonspecific abnormal finding of lung field
CPT/HCPCS: 36415; 71045; 71260; 80053; 80061; 80202; 81001; 83605; 83735; 83880; 84443; 85025; 85610; 85730; 87040; 87086; 93005; 93306; 93971; 99284; J1650; J1940; J2270; J2405; J3370; J7030; J7050; Q9967